=== PATIENT | female | born 1940 | race African-American/Black ===

== ENCOUNTER 2017-09-21 11:26 | Inpatient (IN) | payer MEDICARE ==
[~2017-09-21] VITALS: Ht 157.5 cm; Wt 78.7 kg
[~2017-09-21 11:26] MED LIST: AMLO10TA2 PO; GLIP10TA13 PO; HYDR12.53 PO; INSU100I7 SQ-INSULIN; LISI40TA PO; METF500T4 PO; METO25TA35 PO; SIMV20TA3 PO
[2017-09-21] MEDS ORDERED: LABETALOL 5MG/ML, 20ML IVPush ONE (12:00)
[2017-09-21] MEDS ORDERED: DEXAMETHASONE 4 MG TABLET ONE (12:07)
[2017-09-21] MEDS ORDERED: ASPIRIN 325 MG TABLET PO ONE (12:30)
[2017-09-21] MEDS ORDERED: ASPIRIN 325 MG TABLET ONE (12:33)
[2017-09-21 12:54] LABS: BASOPHILS # (AUTO) 0.07 x10^3/uL (0-0.1); BASOPHILS % (AUTO) 1 % (0-1); EOSINOPHILS # (AUTO) 0.28 x10^3/uL (0-0.4); EOSINOPHILS % (AUTO) 2 % (1-7); LYMPHOCYTES # (AUTO) 3.54 x10^3/uL (1-3.4); LYMPHOCYTES % (AUTO) 26 % (22-44); MD NO; MEAN CORPUSCULAR HEMOGLOBIN 27.6 pg (27.0-34.8); MEAN CORPUSCULAR HGB CONC 32.8 g/dL (32.4-35.8); MEAN CORPUSCULAR VOLUME 84.1 fL (80-100); MEAN PLATELET VOLUME 8.4 fL (7.4-10.4); MONOCYTES # (AUTO) 0.64 x10^3/uL (0.2-0.8); MONOCYTES % (AUTO) 5 % (2-9); NEUTROPHILS # (AUTO) 9.31 x10^3/uL (1.8-6.8); NEUTROPHILS % (AUTO) 67 % (42-75); PLATELET COUNT 240 x10^3/uL (130-400); RED BLOOD COUNT 4.94 x10^6/uL (3.82-5.3); RED CELL DISTRIBUTION WIDTH 15.5 % (9.6-15.2)
[2017-09-21 12:57] LABS: ALBUMIN 3.2 g/dL (3.4-5.0); ANION GAP 8 mmol/L (5-15); CALCIUM 9.3 mg/dL (8.5-10.1); CHLORIDE 108 mmol/L (98-107); CREATININE 0.93 mg/dL (0.55-1.02)
[2017-09-21] MEDS ORDERED: ONDANSETRON ODT 4 MG PO PRN (13:00)
[2017-09-21] MEDS ORDERED: HYDROcodone/APAP 5/325 TABLET PO PRN (13:00)
[2017-09-21] MEDS ORDERED: ONDANSETRON 2MG/ML, 2ML IVPush PRN (13:00)
[2017-09-21] MEDS ORDERED: POLYETHYLENE GLYCOL 17 GM PACKET PO PRN (13:00)
[2017-09-21] MEDS ORDERED: LABETALOL 5MG/ML, 20ML IVPush PRN (13:00)
[2017-09-21] MEDS ORDERED: GUAIFENESIN/DM 200-20MG, 10ML UDC PO PRN (13:00)
[2017-09-21 13:01] LABS: ALANINE AMINOTRANSFERASE 17 U/L (12-78); ALKALINE PHOSPHATASE 89 U/L (45-117); BILIRUBIN,TOTAL 0.5 mg/dL (0.2-1.0); TOTAL PROTEIN 7.6 g/dL (6.4-8.2); TROPONIN I < 0.015 ng/mL (0.000-0.045)
[2017-09-21 13:09] LABS: INTERNATIONAL NORMALIZED RATIO 0.92 (0.93-1.1); PROTHROMBIN TIME 9.6 Seconds (9.6-11.5)
[2017-09-21] MEDS ORDERED: ENOXAPARIN 40 MG/0.4 ML ONE (13:12)
[2017-09-21 13:36] LABS: HEMOGLOBIN A1C 9.4 % (4.2-6.3)
[2017-09-21] MEDS: ENOXAPARIN 40 MG/0.4 ML SQ SCH (13:47)
[2017-09-21] MEDS ORDERED: LORazepam 2 MG/ML, 1ML ONE (14:40)
[2017-09-21] MEDS ORDERED: LORazepam 2 MG/ML, 1ML IV ONE (15:00)
[2017-09-21] MEDS ORDERED: GADOBUTROL 7.5 MMOL/7.5 ML PFS ONE (15:26)
[2017-09-21 20:16] VITALS: BP 151/73
[2017-09-21] MEDS: INSULIN LISPRO SQ-INSULIN SCH (21:17)
[2017-09-21] MEDS: INSULIN NPL SQ-INSULIN SCH (21:17)
[2017-09-21] MEDS: ATORVASTATIN 20 MG TABLET PO SCH (21:17)
[2017-09-21 22:12] VITALS: BP 151/73
[2017-09-22 02:00] VITALS: BP 163/97
[2017-09-22 03:53] VITALS: BP 154/75
[2017-09-22] MEDS: ASPIRIN 81 MG TABLET EC PO SCH (05:37)
[2017-09-22 05:49] LABS: BASOPHILS # (AUTO) 0.01 x10^3/uL (0-0.1); BASOPHILS % (AUTO) 0 % (0-1); EOSINOPHILS # (AUTO) 0.03 x10^3/uL (0-0.4); EOSINOPHILS % (AUTO) 0 % (1-7); LYMPHOCYTES # (AUTO) 1.66 x10^3/uL (1-3.4); LYMPHOCYTES % (AUTO) 12 % (22-44); MD NO; MEAN CORPUSCULAR HEMOGLOBIN 27.8 pg (27.0-34.8); MEAN CORPUSCULAR HGB CONC 32.8 g/dL (32.4-35.8); MEAN CORPUSCULAR VOLUME 84.5 fL (80-100); MEAN PLATELET VOLUME 8.7 fL (7.4-10.4); MONOCYTES # (AUTO) 0.07 x10^3/uL (0.2-0.8); MONOCYTES % (AUTO) 1 % (2-9); NEUTROPHILS # (AUTO) 12.07 x10^3/uL (1.8-6.8); NEUTROPHILS % (AUTO) 87 % (42-75); PLATELET COUNT 258 x10^3/uL (130-400); RED BLOOD COUNT 5.06 x10^6/uL (3.82-5.3); RED CELL DISTRIBUTION WIDTH 14.9 % (9.6-15.2)
[2017-09-22 05:55] LABS: ALANINE AMINOTRANSFERASE 17 U/L (12-78); ALBUMIN 3.2 g/dL (3.4-5.0); ANION GAP 7 mmol/L (5-15); CALCIUM 9.4 mg/dL (8.5-10.1); CHLORIDE 108 mmol/L (98-107); CREATININE 0.95 mg/dL (0.55-1.02)
[2017-09-22 05:58] LABS: ALKALINE PHOSPHATASE 79 U/L (45-117); BILIRUBIN,TOTAL 0.4 mg/dL (0.2-1.0); TOTAL PROTEIN 7.7 g/dL (6.4-8.2)
[2017-09-22] MEDS: SENNA/DOCUSATE TABLET PO SCH (08:44)
[2017-09-22] MEDS: HYDROCHLOROTHIAZIDE 12.5 MG CAPSULE PO SCH (08:44)
[2017-09-22] MEDS: AMLODIPINE 5 MG TABLET PO SCH (08:44)
[2017-09-22] MEDS: LISINOPRIL 20 MG TABLET PO SCH (08:45)
[2017-09-22 08:52] VITALS: BP 169/88
[2017-09-22] MEDS: INSULIN NPL SQ-INSULIN SCH (09:00)
[2017-09-22] MEDS: INSULIN LISPRO SQ-INSULIN SCH (09:00)
[2017-09-22] MEDS ORDERED: INSULIN GLARGINE 100 UNITS/ML, PEN SQ-INSULIN SCH ×2 (09:30→21:00)
[2017-09-22] MEDS: INSULIN GLARGINE 100 UNITS/ML, PEN SQ-INSULIN SCH (09:50)
[2017-09-22] MEDS: INSULIN LISPRO 100 UNITS/ML, PEN SQ-INSULIN SCH ×4 (09:51→20:44)
[2017-09-22] MEDS ORDERED: INSULIN LISPRO 100 UNITS/ML, PEN SQ-INSULIN SCH (11:00)
[2017-09-22] MEDS: ENOXAPARIN 40 MG/0.4 ML SQ SCH (13:19)
[2017-09-22 14:42] VITALS: BP 162/74
[2017-09-22 19:53] VITALS: BP 163/72
[2017-09-22] MEDS: ATORVASTATIN 20 MG TABLET PO SCH (20:43)
[2017-09-23 01:52] VITALS: BP 170/84
[2017-09-23 04:14] VITALS: BP 138/96
[2017-09-23] MEDS: ASPIRIN 81 MG TABLET EC PO SCH (05:46)
[2017-09-23 06:12] LABS: ALBUMIN 3.3 g/dL (3.4-5.0); ANION GAP 9 mmol/L (5-15); CALCIUM 9.6 mg/dL (8.5-10.1); CHLORIDE 107 mmol/L (98-107); CREATININE 0.94 mg/dL (0.55-1.02)
[2017-09-23 06:50] LABS: MD YES; MEAN CORPUSCULAR HGB CONC 33.4 g/dL (32.4-35.8); MEAN CORPUSCULAR VOLUME 83.8 fL (80-100); MEAN PLATELET VOLUME 9.1 fL (7.4-10.4); PLATELET COUNT 257 x10^3/uL (130-400); RED BLOOD COUNT 4.88 x10^6/uL (3.82-5.3); RED CELL DISTRIBUTION WIDTH 14.9 % (9.6-15.2)
[2017-09-23 06:51] LABS: LYMPH#(MANUAL) 3.84 x10^3/uL (1-3.4); LYMPHS% (MANUAL) 15 % (22-44); MONOS#(MANUAL) 1.28 x10^3/uL (0.3-2.7); MONOS% (MANUAL) 5 % (2-9); SEG#(MANUAL) 20.48 x10^3/uL (1.8-6.8); SEGS% (MANUAL) 80 % (42-75)
[2017-09-23 06:52] LABS: <PLATELET ESTIMATE> ADEQUATE; <PLT MORPHOLOGY> NORMAL PLT MORPH
[2017-09-23 06:53] LABS: POLYCHROMASIA 1+
[2017-09-23] MEDS ORDERED: PRED20TA PO (07:14)
[2017-09-23] MEDS ORDERED: ATOR20TA9 PO (07:14)
[2017-09-23] MEDS ORDERED: HYDR25TA6 PO (07:14)
[2017-09-23] MEDS ORDERED: METF500T PO (07:14)
[2017-09-23] MEDS ORDERED: ASPI-621 PO (07:14)
[2017-09-23] MEDS ORDERED: INSU100I13 SQ-INSULIN ×2 (07:14)
[2017-09-23 08:02] VITALS: BP 165/89
[2017-09-23] MEDS: HYDROCHLOROTHIAZIDE 12.5 MG CAPSULE PO SCH (08:22)
[2017-09-23] MEDS: SENNA/DOCUSATE TABLET PO SCH (08:22)
[2017-09-23] MEDS: AMLODIPINE 5 MG TABLET PO SCH (08:22)
[2017-09-23] MEDS: LISINOPRIL 20 MG TABLET PO SCH (08:22)
[2017-09-23] MEDS: INSULIN LISPRO 100 UNITS/ML, PEN SQ-INSULIN SCH ×2 (08:23→11:31)
[2017-09-23] MEDS: INSULIN GLARGINE 100 UNITS/ML, PEN SQ-INSULIN SCH (08:23)
[2017-09-23 08:55] LABS: MICROSCOPIC INDICATED
== END 2017-09-23 12:01 | disposition home or self-care (01) | DRG 638 ==
LOC: ED 12:21 → EDIP 12:22 → ED 12:33 → 4EST 18:45 → DCLOUNGE 09-23 11:46
PROVIDERS: ADMIT Hospitalist; ATTEND Hospitalist
DX: E11.65 Type 2 diabetes mellitus with hyperglycemia (principal); E44.1 Mild protein-calorie malnutrition; G45.9 Transient cerebral ischemic attack, unspecified; I16.0 Hypertensive urgency; D72.829 Elevated white blood cell count, unspecified; E78.5 Hyperlipidemia, unspecified; I10 Essential (primary) hypertension; Z79.82 Long term (current) use of aspirin; Z79.899 Other long term (current) drug therapy; Z68.31 Body mass index [BMI] 31.0-31.9, adult
CPT/HCPCS: 36415; 70553; 71045; 80048; 80053; 81001; 82040; 82962; 83036; 83735; 84100; 84439; 84484; 85025; 85610; 93306; 93880; 96374; 96375; A9585; J1650; J1815; J2060; J7512